=== PATIENT | female | born 1990 | race Caucasian/White ===

== ENCOUNTER → 2016-06-18 | Outpatient (REF) | payer OTHER | LOC: M LAB REF 19:10 | PROVIDERS: ATTEND Physician Assistant Medical | DX: J02.9 Acute pharyngitis, unspecified (principal) ==

== ENCOUNTER → 2016-09-02 | Outpatient (REF) | payer OTHER | LOC: M LAB REF 10:38 | PROVIDERS: ATTEND Physician Assistant | DX: J20.9 Acute bronchitis, unspecified (principal) ==

== ENCOUNTER → 2017-09-16 | Outpatient (REF) | payer OTHER ==
[2017-09-16 19:07] LABS: AMORPHOUS SEDIMENT MODERATE (NEGATIVE); APPEARANCE, URINE HAZY (CLEAR); BACTERIA, URINE AUTO 1+ (NEGATIVE); BILIRUBIN, URINE AUTO NEGATIVE (NEGATIVE); BLOOD, URINE BLOOD 1+ (NEGATIVE); COLOR, URINE YELLOW (YELLOW); GLUCOSE, URINE (UA) AUTO NEGATIVE (NEGATIVE); KETONE, URINE AUTO NEGATIVE (NEGATIVE); LEUKOCYTE ESTERASE, URINE AUTO NEGATIVE (NEGATIVE); MUCUS, URINE SMALL (NEGATIVE); NITRITE, URINE AUTO NEGATIVE (NEGATIVE); PROTEIN, URINE AUTO NEGATIVE (NEGATIVE); RBC, URINE AUTO 11 /HPF (0-3); SPECIFIC GRAVITY URINE AUTO 1.021 (1.002-1.035); SQUAMOUS EPITHELIAL CELL UR AU 1 /HPF (0-6); WBC, URINE AUTO 1 /HPF (0-3)
== END ==
LOC: M SFHCADAM 18:28
DX: Z00.00 Encounter for general adult medical examination without abnormal findings (principal)
CPT/HCPCS: 81001

== ENCOUNTER → 2017-12-14 | Outpatient (CLI) | payer OTHER ==
[~2017-12-14] MED LIST: ISOVUE-370 76% 100ML VIAL (Q9967) As Ordered
== END ==
LOC: M RAD 16:56
DX: R22.1 Localized swelling, mass and lump, neck (principal)

== ENCOUNTER 2018-08-31 12:56 | Emergency (ER) | payer BC, MEDICAID, OTHER, SELFPAY ==
[~2018-08-31] VITALS: Ht 180.3 cm; Wt 80.9 kg
[2018-08-31] MEDS ORDERED: METOCLOPRAMIDE INJ 10MG/2ML VIAL (J2765) IV ONE (13:30)
[2018-08-31] MEDS ORDERED: NS 1,000 ML IV ONE (13:30)
[2018-08-31 14:00] LABS: HEMATOCRIT 42.2 % (36.0-47.0); HEMOGLOBIN 14.9 g/dl (12.0-15.5); MEAN CORPUSCULAR HEMOGLOBIN 30.2 pg (27.0-33.0); MEAN CORPUSCULAR HGB CONC 35.3 g/dl (32.0-36.5); MEAN CORPUSCULAR VOLUME 85.4 fl (80.0-96.0); PLATELET COUNT, AUTOMATED 411 10^3/uL (150-450); RED BLOOD COUNT 4.94 10^6/uL (4.00-5.40); WHITE BLOOD COUNT 18.9 10^3/uL (4.0-10.0)
--- NOTE | 2018-08-31 14:41 | REP ---
FIRST TRIMESTER ULTRASOUND: HISTORY: Abdominal pain. A single intrauterine is present. The pole measures 0.3 cm corresponding to a gestational age of 5 weeks 6 days. heart rate is 104 beats per minute. There is no subchorionic hemorrhage. The adnexa are normal in appearance. There is no fluid in the cul-de-sac. IMPRESSION: There is a single intrauterine with a gestational age by ultrasound of 5 weeks 6 days. A repeat examination in 19-20 weeks is recommended for further evaluation. Electronically Signed by Bandar Mayberry MD 08/31/2018 02:55 P
[2018-08-31 14:47] LABS: ALBUMIN 4.2 GM/DL (3.2-5.2); ALT/SGPT 20 U/L (12-78); BILIRUBIN,DIRECT 0.2 MG/DL (0.0-0.2); BILIRUBIN,TOTAL 0.9 MG/DL (0.2-1.0); BLOOD UREA NITROGEN 15 MG/DL (7-18); CALCIUM LEVEL 9.2 MG/DL (8.5-10.1); CARBON DIOXIDE LEVEL 23 MEQ/L (21-32); CHLORIDE LEVEL 102 MEQ/L (98-107); CREATININE FOR GFR 0.72 MG/DL (0.55-1.30); GLOMERULAR FILTRATION RATE > 60.0 (>60); GLUCOSE, FASTING 88 MG/DL (70-100); HCG, SERUM QUANTITATIVE 24864 MIU/ML; LIPASE 59 U/L (73-393); POTASSIUM SERUM 3.7 MEQ/L (3.5-5.1); SODIUM LEVEL 135 MEQ/L (136-145); TOTAL PROTEIN 8.6 GM/DL (6.4-8.2)
[2018-08-31] MEDS ORDERED: REGL5TAB2 PO (15:31)
[2018-08-31 15:42] VITALS: BP 112/60
== END 2018-08-31 15:45 | disposition home or self-care (01) ==
LOC: M ED 12:56
DX: O21.9 Vomiting of pregnancy, unspecified (principal); Z3A.01 Less than 8 weeks gestation of pregnancy
CPT/HCPCS: 76801; 80048; 80076; 81001; 81025; 83690; 84702; 85027; 93976; 96361; 96374; 99284; J2765

== ENCOUNTER → 2018-09-21 | Outpatient (CLI) | payer OTHER ==
[~2018-09-21] MED LIST changes: -ISOVUE-370 76% 100ML VIAL (Q9967) As Ordered; +REGL5TAB2 PO
[2018-09-21 18:11] LABS: BASO % 0.1 % (0.0-1.0); EOS # 0.1 10^3/uL (0.0-0.50); EOS % 0.4 % (0.0-3.0); HEMOGLOBIN 13.1 g/dl (12.0-15.5); LYMPH # 2.9 10^3/uL (1.5-6.5); LYMPH % 21.3 % (24.0-44.0); MEAN CORPUSCULAR HEMOGLOBIN 29.5 pg (27.0-33.0); MEAN CORPUSCULAR HGB CONC 33.6 g/dl (32.0-36.5); MEAN CORPUSCULAR VOLUME 87.8 fl (80.0-96.0); MONO # 0.8 10^3/uL (0.0-0.8); MONO % 5.8 % (0.0-5.0); NEUTROPHILS # 9.8 10^3/uL (1.8-7.7); NEUTROPHILS % 72.2 % (36.0-66.0); PLATELET COUNT, AUTOMATED 339 10^3/uL (150-450); RED BLOOD COUNT 4.44 10^6/uL (4.00-5.40); WHITE BLOOD COUNT 13.5 10^3/uL (4.0-10.0)
[2018-09-21 20:39] LABS: CHLAMYDIA DNA AMPLIFICATION NEGATIVE (NEGATIVE); GC DNA AMPLIFICATION NEGATIVE (NEGATIVE)
[2018-09-22 11:18] LABS: HEPATITIS C VIRUS ABY INDEX 0.1 INDEX (<0.8); HIV 1&2 SCREEN CENTAUR NEGATIVE (NEGATIVE); RUBELLA IgG QUALITATIVE IMMUNE (IMMUNE)
== END ==
LOC: M WUC 13:27 → M SMT 13:27
PROVIDERS: ATTEND Advanced Practice Midwife
DX: Z34.81 Encounter for supervision of other normal pregnancy, first trimester (principal); Z36.89 Encounter for other specified antenatal screening

== ENCOUNTER → 2018-12-04 | Outpatient (CLI) | payer OTHER ==
--- NOTE | 2018-12-05 06:15 | REP ---
Clinical: Anatomical evaluation. Comparison: None Findings: Examination demonstrates a single live intrauterine in breech presentation. motion is identified by technologist. Placenta is noted posterior and grade 0 without evidence for placenta previa or abruption. Amniotic fluid volume is normal. Cervix measures 3.7 cm in length and appears closed. No evidence for nuchal cord. Gestational age by LMP 19 weeks 1 day with PHILIP 04/29/2019 . Gestational age by current measurements 20 weeks 1 day with PHILIP 04/22/2019 . FHR equals 144 beats per minute. BPD 4.6 cm 19 weeks 5 days HC 17.5 cm 20 weeks 0 days AC 15.2 cm 20 weeks 3 days FL 3.3 cm 20 weeks 2 days HL 3.1 cm 20 weeks 0 days HC/AC ratio 1.15 Estimated weight 345 grams ( 95th percentile). Anatomical assessment demonstrates normal structures including cranium, choroid plexus, cavum, cerebellum/posterior fossa, lungs, diaphragm, stomach, cord insertion/three-vessel cord, kidneys/bladder, spine, and extremities. Limited evaluation of the facial features and heart/ventricular outflow tract. Impression: 1. Single live intrauterine in breech presentation demonstrating appropriate interval growth. Estimated weight at 95th percentile. 2. Anatomical limitations as described above may warrant reevaluation and follow-up. Electronically Signed by Ramy Parish MD 12/05/2018 06:06 A
== END ==
LOC: M RAD 10:58
PROVIDERS: ATTEND Specialist
DX: Z34.82 Encounter for supervision of other normal pregnancy, second trimester (principal); Z3A.20 20 weeks gestation of pregnancy

== ENCOUNTER → 2019-01-11 | Outpatient (CLI) | payer OTHER ==
--- NOTE | 2019-01-11 18:20 | REP ---
OB Sonography: History: Supervision of for anatomy. Findings: Scanning through the gravid uterus demonstrates a viable single intrauterine gestation in a vertex lie. motion is observed and heart rate is recorded at 139 beats per minute. A posterior grade zero placenta is seen without evidence of previa or abruption. Amniotic fluid is subjectively normal. Closed cervical length is 4.2 cm measured transabdominally. No extrauterine abnormalities observed. There has been appropriate interval growth. Umbilical cord is seen draping over the neck. No anomaly is seen. The following anatomic structures are identified and felt to be sonographically unremarkable: cranium, choroid plexus, cavum, cerebellum and posterior fossa, face and profile, lungs, four-chamber heart with left and right ventricular outflow tract views, diaphragm, left-sided stomach, abdominal wall cord insertion, three-vessel umbilical cord, kidneys and bladder, spine, upper and lower extremities. Biometry chart: BPD 6.4 cm 26 weeks 0 days head circumference 23.3 cm 25 weeks 3 days abdominal circumference 21.5 cm 26 weeks 0 days femur length 4.6 cm 25 weeks 1 day humeral length 4.3 cm 25 weeks 4 days HC/AC ratio normal 1.08, cephalic index normal 0.77 estimated weight 833 grams, 1 pound 13 ounces, 74th percentile for 24 weeks 4 days. Impression: Viable single intrauterine gestation at 25 weeks 4 days by today's composite sonographic criteria. Expected gestational age estimate based on prior sonography is 24 weeks 6 days. PHILIP by prior sonography April 27, 2019. anatomic survey is felt to be complete. Electronically Signed by Gabe Owens MD 01/11/2019 07:28 P
== END ==
LOC: M RAD 16:26
PROVIDERS: ATTEND Advanced Practice Midwife
DX: Z34.82 Encounter for supervision of other normal pregnancy, second trimester (principal); Z3A.25 25 weeks gestation of pregnancy

== ENCOUNTER → 2019-01-29 | Outpatient (CLI) | payer OTHER ==
[2019-01-29 13:31] LABS: BASO % 0.1 % (0.0-1.0); EOS # 0.1 10^3/uL (0.0-0.5); HEMATOCRIT 36.5 % (36.0-47.0); LYMPH # 2.4 10^3/uL (1.5-5.0); MEAN CORPUSCULAR HEMOGLOBIN 30.9 pg (27.0-33.0); MEAN CORPUSCULAR HGB CONC 32.9 g/dl (32.0-36.5); MEAN CORPUSCULAR VOLUME 94.1 fl (80.0-96.0); MONO # 0.9 10^3/uL (0.0-0.8); MONO % 5.8 % (0.0-5.0); NEUTROPHILS # 11.3 10^3/uL (1.5-8.5); NEUTROPHILS % 76.6 % (36.0-66.0); PLATELET COUNT, AUTOMATED 281 10^3/uL (150-450); RED BLOOD COUNT 3.88 10^6/uL (4.00-5.40); WHITE BLOOD COUNT 14.7 10^3/uL (4.0-10.0)
== END ==
LOC: M SMT 09:01
PROVIDERS: ATTEND Advanced Practice Midwife
DX: Z34.82 Encounter for supervision of other normal pregnancy, second trimester (principal)

== ENCOUNTER → 2019-04-02 | Outpatient (REF) | payer OTHER | LOC: M SFHCPLAZ 13:13 | PROVIDERS: ATTEND Specialist | DX: Z34.80 Encounter for supervision of other normal pregnancy, unspecified trimester (principal) ==

== ENCOUNTER 2019-05-05 10:36 | Inpatient (IN) | payer OTHER ==
[~2019-05-05] VITALS: Ht 180.3 cm; Wt 90.7 kg
[2019-05-05] VITALS (9 sets, daily range): BP systolic 122–148; BP diastolic 68–95
[2019-05-05] MEDS ORDERED: OXYTOCIN 30 UNITS IN 0.9% NaCl 500ML IV BAG (J2590) As Ordered ONE ×2 (11:30→13:35)
[2019-05-05 12:10] LABS: HEMATOCRIT 38.4 % (36.0-47.0); HEMOGLOBIN 12.4 g/dl (12.0-15.5); MEAN CORPUSCULAR HEMOGLOBIN 27.5 pg (27.0-33.0); MEAN CORPUSCULAR HGB CONC 32.3 g/dl (32.0-36.5); MEAN CORPUSCULAR VOLUME 85.1 fl (80.0-96.0); PLATELET COUNT, AUTOMATED 375 10^3/uL (150-450); RED BLOOD COUNT 4.51 10^6/uL (4.00-5.40); WHITE BLOOD COUNT 15.9 10^3/uL (4.0-10.0)
[2019-05-05] MEDS ORDERED: OXYTOCIN DRIP 30 UNITS in IV 1 EA IV SCH ×2 (12:21→15:30)
[2019-05-05] MEDS ORDERED: MEASLES,MUMPS,RUBELLA VACCINE INJ (MMR-II) (90707) SC SCH (12:30)
[2019-05-05] MEDS ORDERED: MOM 30ML SUSPENSION UDC PO PRN (12:30)
[2019-05-05] MEDS ORDERED: ACETAMINOPHEN TAB 650MG DOSE (2X325MG) PO PRN (12:30)
[2019-05-05] MEDS ORDERED: METHYLERGONOVINE MALEATE 0.2 MG TAB PO PRN (12:30)
[2019-05-05] MEDS ORDERED: DIBUCAINE 1% OINTMENT 30GM TOP PRN (12:30)
[2019-05-05] MEDS ORDERED: ACETAMINOPHEN 500 MG TAB PO PRN (12:30)
[2019-05-05] MEDS ORDERED: IBUPROFEN 600 MG TAB PO PRN (12:30)
[2019-05-05] MEDS ORDERED: RHOGAM 300 MCG (1500 IU) INJ (J2790) IM SCH (12:30)
[2019-05-05] MEDS ORDERED: ANUSOL HC CREAM 30GM TOP PRN (12:30)
[2019-05-05] MEDS ORDERED: DOCUSATE SODIUM 100 MG CAP PO PRN (12:30)
[2019-05-05] MEDS: OXYTOCIN DRIP 30 UNITS in IV 1 EA IV SCH ×2 (12:37→16:05)
[2019-05-05] MEDS ORDERED: METHYLERGONOVINE MALEATE 0.2 MG TAB PO SCH (13:00)
[2019-05-05] MEDS ORDERED: METHYLERGONOVINE MALEATE 0.2 MG/ML VIAL (J2210) IM STA (13:05)
[2019-05-05] MEDS ORDERED: METHYLERGONOVINE MALEATE 0.2 MG/ML VIAL (J2210) As Ordered ONE (13:07)
--- NOTE | 2019-05-05 13:19 | HPEPDOC ---
Obstetrical History & Physical General Date of Admission May 05, 2019 at 10:47 History of Present Illness 29-year-old 2, para 1 who presents at 40 weeks 6 days estimated gestational age with complaints of contractions that started at 9 AM this morning. Reports active movements. Denies any vaginal bleeding or leakage of fluid. course has been unremarkable. She initiated care in her first trimesters and has been appropriate throughout. Chief Complaint: Contractions, term Information Provided By: Patient Age: 29 : 2 Term: 1 Livin Care Care: Good Care Dating Final EDC: Apr 29, 2019 Final EDC for Daily Update: Apr 29, 2019 Final EDC by: 1st trimester (US) LMP: Jul 23, 2018 1st Trimester Date: May 05, 2019 Past Medical History Past Obstetrical History : Past Obstetrical History: Multigravida Type of Delivery: Spontaneous Vaginal Del. Sex of : Female Complications: No FORENSIC ENGINEER History: Abnormal Pap Past Medical History Surgical History: Denies/None Family History Significant Family History: Cancer, Diabetes, Heart disease Social History Marital Status: Single Psychosocial History: No pertinent psych hx * Smoker: non-smoker Alcohol: Denies Drugs: denies Allergies Coded Allergies: No Known Allergies (Unverified , 08/31/18) Medications Scheduled Metoclopramide Hcl (Reglan) 5 Mg Tablet, 1 TAB PO Q8H 1 hour prior to procedure Physical Examination Physical Examination GENERAL: Alert and oriented times three. BREAST: . ABDOMEN: Gravid and non-tender to touch. FETUS: Is vertex (VTX) by sterile vaginal examination (SVE), fetus is vertex (VTX) by Abhi. HEART RATE: Regular rate and rhythm. LUNGS: Clear to auscultation (CTA). Laboratory Data 24H LABS Laboratory Tests 2 05/05/19 10:52: Serology Scanned Report Hepatitis B Testing 05/05/19 11:05: Nucleated Red Blood Cells % (auto) 0.0 CBC/BMP Laboratory Tests 05/05/19 11:05 Pertinent Laboratoy Data Blood Type: O+ RBC Antibody Screen: Negative HIV: Negative Hepatitis B: Negative Hepatitis C: Negative Rapid Plasma Reagin: Nonreactive Rubella: Immune Chlamydia/Gonorrhea: Negative Group B Streptococcus: Negative Anatomy Ultrasound Placenta Location: Posterior Normal Anatomy: Yes Placenta Previa: No Steroid Therapy Steroid Therapy: No Vaginal Examination Dilation: 9 cm Effacement: 100% Station: +1 Cervical Consistency: Soft Cervical Position: Anterior Presentation: Cephalic presentation Assessment Variability: Moderate Accelerations: Positive Tocometer Frequency: regular Strength: palpated as strong Assessment/Plan Assessment 29-year-old (G) 2 para (P) 1 at 40 + 6 weeks by 8-week ultrasound. Presents to Labor and Delivery (L&D) in active labor. Reassuring status. Plan Admit and orient. Loan Assistant and consent. Group B Streptococcus (GBS) negative. Labs and intravenous (IV) per unit protocol. Anticipate normal spontaneous delivery (). C-S as appropriate. BON HEAD MD. May 05, 2019 13:19
--- NOTE | 2019-05-05 13:25 | DNPDOC ---
[facility] Delivery Note Delivery Note DATE OF DELIVERY: 05/05/2019 PREDELIVERY DIAGNOSIS: 40-6/7 weeks' gestation and labor. POST DELIVERY DIAGNOSIS: Delivered. PROCEDURE:, Spontaneous vaginal delivery. BARREL AND RECEIVER ALIGNER: Dr. Ellington ANESTHESIA: None. ESTIMATED BLOOD LOSS:. 300 mL. FINDINGS: 10 pound, 1 ounce female infant, Score, 9/9, compound left hand. DELIVERY SUMMARY: Patient is a [29]-year-old 2 now para 2 who was admitted to labor and delivery for labor. At 1154, Ms. Stoddard, 29-year-old 2 now para 2, had a spontaneous vaginal delivery of a liveborn female infant, Apgars 9 and 9. Weight was 10 lbs. 1 oz. or 4560 g. Head was delivered JACKY with left compound hand. This was followed by delivery right anterior shoulder and corpus. was then handed to mom with good cry. Cords clamped 2 and was cut by the father of the baby under my direction was then taken over to the warmer where Dr. Jolley principal quality engineer awaited secondary to meconium- stained amniotic fluid. Placenta was then drained and delivered grossly intact. A premixed bag of 500ml of normal saline was bolused along with uterine massage, until the uterus was firm. On inspection, there was a first-degree midline laceration which was repaired with 3-0 Vicryl. On reinspection, cervix, vagina and perineum was grossly intact hemostatic. Mom and baby recovered in stable condition. The couples decided to maintain the daughter BON Fermin MD. May 05, 2019 13:25
[2019-05-05] MEDS: IBUPROFEN 800 MG TAB PO PRN (15:23)
[2019-05-05] MEDS ORDERED: LIDOCAINE 1% MDV 20ML VIAL INFIL ONE (15:30)
[2019-05-05] MEDS: METHYLERGONOVINE MALEATE 0.2 MG TAB PO SCH ×2 (18:15→22:21)
[2019-05-06] MEDS: METHYLERGONOVINE MALEATE 0.2 MG TAB PO SCH ×3 (01:48→08:32)
[2019-05-06] MEDS: IBUPROFEN 800 MG TAB PO PRN ×3 (02:05→21:12)
[2019-05-06 06:00] VITALS: BP 122/76
[2019-05-06] MEDS: PRENATAL VITAMINS CHEWABLE TABLET PO SCH (08:32)
--- NOTE | 2019-05-06 08:48 | IPNPDOC ---
Progress Note Date of Service: May 06, 2019 Day#: 1 Progress Note SUBJECT: Doing well without complaints. Ambulating, voiding and pain is well- controlled. Reports minimal lochia. +breast feeding OBJECTIVE: VITAL SIGNS: Within normal limits, afebrile. Alert and oriented times three. Abdomen: Fundus firm at U-2. Soft, NTTP. Ext: neg calf tenderness. ASSESSMENT: day #1 status post normal spontaneous vaginal delivery. Recovering in stable condition. PLAN: 1. Continue routine care 2. Discharge plans for tomorrow VS, I&O, 24H, Fishbone Vital Signs/I&O Vital Signs Date Time Temp Pulse Resp B/P (MAP) Pulse Ox O2 Delivery O2 Flow Rate FiO2 05/06/19 06:00 98.1 71 16 122/76 (91) 98 Room Air I&O- Last 24 Hours up to 6 AM 05/06/19 06:00 Output Total 521 ml Balance -521 ml Laboratory Data 24H LABS Laboratory Tests 2 05/05/19 10:52: Serology Scanned Report Hepatitis B Testing 05/05/19 11:05: Nucleated Red Blood Cells % (auto) 0.0 CBC/BMP Laboratory Tests 05/05/19 11:05 BON HEAD MD. May 06, 2019 08:48
[2019-05-06] MEDS ORDERED: ADACEL/BOOSTRIX VACCINE (DIPHTH/PERTUSS/ACELL/TETANUS)0.5ML SYR (90715) IM ONE (09:00)
[2019-05-06 18:02] VITALS: BP 117/74
[2019-05-07 06:00] VITALS: BP 119/72
[2019-05-07] MEDS: IBUPROFEN 800 MG TAB PO PRN (06:13)
[2019-05-07] MEDS: PRENATAL VITAMINS CHEWABLE TABLET PO SCH (09:01)
== END 2019-05-07 16:00 | disposition home or self-care (01) | DRG 560 ==
LOC: M LDO 10:36 → M LDI 10:47 → M OBS 18:13
PROVIDERS: ADMIT Obstetrics & Gynecology; ATTEND Obstetrics & Gynecology
PROC: 10E0XZZ Delivery of Products of Conception, External Approach (ICD-10-PCS; principal; 2019-05-05)
PROC: 0HQ9XZZ Repair Perineum Skin, External Approach (ICD-10-PCS; 2019-05-05)
DX: O48.0 Post-term pregnancy (principal); O32.6XX0 Maternal care for compound presentation, not applicable or unspecified; Z3A.40 40 weeks gestation of pregnancy; O70.0 First degree perineal laceration during delivery; O77.0 Labor and delivery complicated by meconium in amniotic fluid; Z37.0 Single live birth

== ENCOUNTER → 2019-09-28 | Outpatient (REF) | payer OTHER ==
[2019-09-28 18:17] LABS: BASO % 0.2 % (0.0-1.0); EOS # 0.2 10^3/uL (0.0-0.5); EOS % 1.5 % (0.0-3.0); HEMATOCRIT 42.2 % (36.0-47.0); HEMOGLOBIN 14.1 g/dl (12.0-15.5); LYMPH # 3.8 10^3/uL (1.5-5.0); LYMPH % 38.7 % (24.0-44.0); MEAN CORPUSCULAR HEMOGLOBIN 29.6 pg (27.0-33.0); MEAN CORPUSCULAR HGB CONC 33.4 g/dl (32.0-36.5); MEAN CORPUSCULAR VOLUME 88.5 fl (80.0-96.0); MONO # 0.7 10^3/uL (0.0-0.8); MONO % 6.9 % (0.0-5.0); NEUTROPHILS # 5.2 10^3/uL (1.5-8.5); NEUTROPHILS % 52.6 % (36.0-66.0); PLATELET COUNT, AUTOMATED 402 10^3/uL (150-450); RED BLOOD COUNT 4.77 10^6/uL (4.00-5.40); WHITE BLOOD COUNT 9.8 10^3/uL (4.0-10.0)
[2019-09-28 18:28] LABS: ALBUMIN 3.8 GM/DL (3.2-5.2); ALT/SGPT 27 U/L (12-78); BILIRUBIN,TOTAL 0.6 MG/DL (0.2-1.0); BLOOD UREA NITROGEN 13 MG/DL (7-18); CALCIUM LEVEL 8.7 MG/DL (8.5-10.1); CARBON DIOXIDE LEVEL 23 MEQ/L (21-32); CHLORIDE LEVEL 112 MEQ/L (98-107); COMPLEMENT C3 70 MG/DL (90-180); COMPLEMENT C4 14 MG/DL (10-40); CREATININE FOR GFR 0.83 MG/DL (0.55-1.30); GLOMERULAR FILTRATION RATE > 60.0 (>60); GLUCOSE, FASTING 72 MG/DL (70-100); POTASSIUM SERUM 4.2 MEQ/L (3.5-5.1); SODIUM LEVEL 143 MEQ/L (136-145); THYROID STIMULATING HORMONE 0.615 uIU/ML (0.358-3.740); TOTAL PROTEIN 7.3 GM/DL (6.4-8.2)
[2019-09-28 18:31] LABS: APPEARANCE, URINE CLEAR (CLEAR); BACTERIA, URINE AUTO NEGATIVE (NEGATIVE); BILIRUBIN, URINE AUTO NEGATIVE (NEGATIVE); BLOOD, URINE BLOOD NEGATIVE (NEGATIVE); COLOR, URINE YELLOW (YELLOW); GLUCOSE, URINE (UA) AUTO NEGATIVE (NEGATIVE); KETONE, URINE AUTO NEGATIVE (NEGATIVE); LEUKOCYTE ESTERASE, URINE AUTO NEGATIVE (NEGATIVE); MUCUS, URINE SMALL (NEGATIVE); NITRITE, URINE AUTO NEGATIVE (NEGATIVE); PROTEIN, URINE AUTO NEGATIVE (NEGATIVE); RBC, URINE AUTO 1 /HPF (0-3); SPECIFIC GRAVITY URINE AUTO 1.025 (1.002-1.035); SQUAMOUS EPITHELIAL CELL UR AU 2 /HPF (0-6); UROBILINOGEN, URINE AUTO 0.2 mg/dL (0.0-2.0); WBC, URINE AUTO 1 /HPF (0-3)
[2019-09-28 18:59] LABS: MALB URINE SIEMENS 11.5 MG/L; MAU/CREAT RATIO 5.3 MCG/MG (0.0-30.0)
[2019-09-28 19:59] LABS: ERYTHROCYTE SEDIMENTATION RATE 2 mm/hr (0-20)
== END ==
LOC: M SFHCADAM 08:58
PROVIDERS: ATTEND Physician Assistant Medical
DX: R53.82 Chronic fatigue, unspecified (principal); L56.8 Other specified acute skin changes due to ultraviolet radiation; M25.561 Pain in right knee; M25.562 Pain in left knee; G89.29 Other chronic pain

== ENCOUNTER → 2022-08-24 | Outpatient (CLI) | payer OTHER ==
[2022-08-24 17:13] LABS: HEMATOCRIT 36.5 % (36.0-47.0); HEMOGLOBIN 12.5 g/dl (12.0-15.5); MEAN CORPUSCULAR HEMOGLOBIN 30.5 pg (27.0-33.0); MEAN CORPUSCULAR HGB CONC 34.2 g/dl (32.0-36.5); PLATELET COUNT, AUTOMATED 280 10^3/uL (150-450); WHITE BLOOD COUNT 11.9 10^3/uL (4.0-10.0)
[2022-08-24 18:08] LABS: HIV 1&2 SCREEN CENTAUR NEGATIVE (NEGATIVE)
[2022-08-24 18:20] LABS: GC DNA AMPLIFICATION NEGATIVE (NEGATIVE)
== END ==
LOC: M PLALAB 16:02
PROVIDERS: ATTEND Obstetrics & Gynecology
DX: Z34.81 Encounter for supervision of other normal pregnancy, first trimester (principal)

== ENCOUNTER → 2022-10-12 | Outpatient (CLI) | payer MEDICAID, OTHER, SELFPAY | LOC: M WHC 08:29 | PROVIDERS: ATTEND Specialist | DX: Z34.82 Encounter for supervision of other normal pregnancy, second trimester (principal) ==

== ENCOUNTER → 2022-12-24 | Outpatient (CLI) | payer BC ==
[2022-12-24 17:42] LABS: HEMATOCRIT 36.8 % (36.0-47.0); HEMOGLOBIN 12.5 g/dl (12.0-15.5); MEAN CORPUSCULAR HEMOGLOBIN 29.8 pg (27.0-33.0); MEAN CORPUSCULAR VOLUME 87.8 fl (80.0-96.0); PLATELET COUNT, AUTOMATED 274 10^3/uL (150-450); RED BLOOD COUNT 4.19 10^6/uL (4.00-5.40); WHITE BLOOD COUNT 12.4 10^3/uL (4.0-10.0)
[2022-12-24 20:32] LABS: GC DNA AMPLIFICATION NEGATIVE (NEGATIVE)
== END ==
LOC: M PLALAB 15:22
PROVIDERS: ATTEND Obstetrics & Gynecology
DX: Z34.82 Encounter for supervision of other normal pregnancy, second trimester (principal)

== ENCOUNTER → 2023-01-04 | Outpatient (CLI) | payer BC | LOC: M LAB 08:19 | PROVIDERS: ATTEND Obstetrics & Gynecology | DX: O99.810 Abnormal glucose complicating pregnancy (principal) ==